=== PATIENT | female | born 1965 | race American Indian/Alaskan Native ===

== ENCOUNTER 2019-10-10 23:06 | Emergency (ER) | payer SELFPAY ==
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
[2019-10-11] MEDS ORDERED: predniSONE 20 MG TAB PO ONE (00:58)
[2019-10-11] MEDS ORDERED: traMADol 50 MG TAB PO ONE (00:58)
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
[2019-10-11 03:50] VITALS: BP 122/67
== END 2019-10-11 04:00 | disposition home or self-care (01) ==
LOC: ED 23:06
DX: S86.912A Strain of unspecified muscle(s) and tendon(s) at lower leg level, left leg, initial encounter (principal); Z98.890 Other specified postprocedural states; V49.49XA Driver injured in collision with other motor vehicles in traffic accident, initial encounter; Y93.89 Activity, other specified; Y92.410 Unspecified street and highway as the place of occurrence of the external cause; Y99.8 Other external cause status
CPT/HCPCS: 73562; 99283; J7512